=== PATIENT | female | born 1960 | race Caucasian/White ===

== ENCOUNTER 2021-08-26 11:02 | Inpatient (IN) | payer BC ==
[~2021-08-26] VITALS: Ht 165.1 cm; Wt 127.3 kg
[2021-08-26] MEDS ORDERED: CELEBREX 200MG200 MG (14:58)
[2021-08-26] MEDS ORDERED: LASIX 40MG TABL40 MG PO (15:00)
[2021-08-26] MEDS ORDERED: K-DUR 10 MEQ T10 MEQ PO (15:00)
[2021-08-26] MEDS ORDERED: WELLBUTRIN XL150 MG PO (15:01)
[2021-08-26] MEDS ORDERED: BUSPAR DIVIDOSE15 MG PO (15:02)
[2021-08-26] MEDS ORDERED: PERCOCET 325 MG1 TA3 PO (15:03)
[2021-08-26] MEDS ORDERED: GLUCOPHAGE500 MG/TAB PO (15:03)
[2021-08-26] MEDS ORDERED: ASPIRIN 32325 MG/TAB PO (15:03)
[2021-08-26] MEDS ORDERED: DITROPAN XL15 MG PO (15:04)
[2021-08-26] MEDS ORDERED: REMERON 15M15 MG/TA1 PO (15:04)
[2021-08-26] MEDS ORDERED: ZOCOR 20MG20 MG PO (15:04)
[2021-08-26] MEDS ORDERED: ZYRTEC10MGSGL PO (15:05)
[2021-08-26] MEDS ORDERED: PROZAC40 MG PO (15:05)
[2021-08-26] MEDS ORDERED: ZESTORETIC 25 M1 TAB PO (15:06)
[2021-08-26] MEDS ORDERED: EUTHYROX75 MCG PO (15:06)
[2021-08-26] MEDS ORDERED: PROAIR HFA0.09 MG/AC IH (15:07)
[2021-08-26] MEDS ORDERED: ADVIL200 MG PO (15:07)
[2021-08-26] MEDS ORDERED: MELATONIN ER10 MG PO (15:07)
[2021-08-26 17:45] VITALS: BP 149/70; PULSE 87; TEMP 98.9
--- NOTE | 2021-08-26 17:45 | NUR ---
PATIENT ADMITED INTO ROOM 347 POST OP. ORIENTED BUT DROWSY. VSS ON TELE. NO C/O PAIN OR NAUSEA. FLUIDS AT BEDSIDE. IV FLUIDS INFUSING VIA PUMP INTO RIGHT AC. LEFT FORARM IV TO INT. SHARPE TO DD WITH SMALL AMOUNTS OF YELLOW URINE NOTED. RLE DRESSING IS CD&I WITH AQUACEL AND ICE PACK INPLACE. SCD'S TO BLE. HEAD TO TOE ASSESSMENT COMPLETE. AT BEDSIDE. ORIENTED TO ROOM. CALL LIGHT IN REACH.
[2021-08-26 18:00] VITALS: BP 146/54; PULSE 88
[2021-08-26 18:15] VITALS: BP 149/86; PULSE 89
[2021-08-26 18:34] LABS: BASO % 0.3 % (0.0-2.0); EOS # 0.1 K/mm3 (0.0-0.7); EOS % 0.6 % (0.0-4.0); GRAN # 11.3 K/mm3 (1.4-6.5); GRAN % 84.1 % (42.2-75.2); HEMOGLOBIN 11.4 g/dl (12.5-16.0); LYMPH # 1.1 K/mm3 (1.2-3.4); LYMPH % 7.8 % (20.0-51.0); MEAN CELL VOLUME 89 fl (80.0-100.0); MEAN CORPUSCULAR HEMOGLOBIN 28 pg (27-31); MEAN CORPUSCULAR HGB CONC 31 g/dl (33.0-37.0); MEAN PLATELET VOLUME 9.9 fl (7.4-10.4); MONO # 0.9 K/mm3 (0.1-0.6); MONO % 6.7 % (1.7-9.3); PLATELET COUNT 271 K/mm3 (130-400); RED BLOOD COUNT 4.11 M/mm3 (4.10-5.30)
[2021-08-26 18:37] LABS: HEMATOCRIT 36.5 % (37.0-47.0)
[2021-08-26 18:43] LABS: CALCIUM 8.8 mg/dL (8.4-10.2); CREATININE, serum 0.75 mg/dL (0.57-1.11); POTASSIUM 4.6 mmol/L (3.5-4.5)
[2021-08-26 19:00] VITALS: BP 149/86; PULSE 89; TEMP 98.7
[2021-08-26 20:30] VITALS: BP 160/52; PULSE 92; TEMP 98.7
--- NOTE | 2021-08-26 21:30 | NUR ---
Pt. sitting up in bed. Pt. is A&OX3, assessment complete. INT to lt. ac patent. Pt. reports pain to rt. hip at a 6 on pain scale, gave pain meds. Pt. denies further needs, call light within reach.
[2021-08-26 23:33] VITALS: BP 134/44; PULSE 96; TEMP 98.7
[2021-08-27 04:22] VITALS: BP 119/56; PULSE 97; TEMP 98.9
[2021-08-27 06:19] LABS: HEMOGLOBIN 10.1 g/dl (12.5-16.0)
[2021-08-27 06:22] LABS: HEMATOCRIT 32.4 % (37.0-47.0)
[2021-08-27 07:36] VITALS: BP 136/56; PULSE 96; TEMP 98.4
[2021-08-27 12:21] VITALS: BP 116/50; PULSE 85; TEMP 98.4
--- NOTE | 2021-08-27 14:22 | NUR ---
PT HAS BEEN ASSISTED ONTO BEDSIDE COMMODE ET BACK INTO BED. PT HAS SEVERE PAIN IN RIGHT HIP WITH MOVEMENT THAT IMPROVES WHEN SHE BECOMES STILL. GAITBELT ET WALKER USED. PT DEMONSTRATES UNDERSTANDING OF TTWB FOR RIGHT LEG. AQUACELL DRESSING REMAINS IN PLACE. PT HAS URINATED X1 SINCE SHARPE CATHETER WAS REMOVED, 50 ML DARK JANAY ODOROUS URINE. PT ENCOURAGED TO DRINK MORE WATER, VERBALIZES UNDERSTANDING BUT STATES THAT SHE IS NOT A BIG WATER DRINKER, REFUSES OTHER DRINKS.
--- NOTE | 2021-08-27 14:23 | NUR ---
SW met with the pt to complete intake. Pt lives at home with her , Nilesh [phone]. Pt is independent on all ADLs but does use walker,cane and glucometer. Pt reports her PCP dr. Tere oreilly. Pt reports not interested in [facility] at this time. PT recommends [facility], and pt wants to go to [facility] and no nursing homes at all. DC: pending referral to SWB Referral faxed to [place] 08/27
[2021-08-27 16:14] VITALS: BP 137/74; PULSE 65; TEMP 97.6
--- NOTE | 2021-08-27 18:31 | NUR ---
PT HAS NOT URINATED BUT A VERY SMALL DARK ET CONCENTRATED AMOUNT OF URINE SINCE SHARPE CATHETER WAS REMOVED THIS AM. PT HAS BEEN ENCOURAGED TO DRINK FLUIDS BUT HAS NOT DONE SO, STATES THAT SHE DOES NOT WANT TO HAVE TO GET UP TO THE BEDSIDE COMMODE FREQUENTLY. PT STATES THAT SHE THINKS SHE IS FREQUENTLY DEHYDRATED. PT HAS BEEN BLADDER SCANNED, LARGEST AMOUNT OF URINE SCANNED WAS 98 ML. ATTEMPT MADE TO CONTACT ET CALL Daylin ADAM APRN X1, WILL ATTEMPT AGAIN SHORTLY.
[2021-08-27 19:39] VITALS: BP 125/49; PULSE 101; TEMP 99.6
[2021-08-28] VITALS (7 sets, daily range): BP systolic 104–141; BP diastolic 43–69; PULSE 82–97; TEMP 98–98.9
[2021-08-28 07:06] LABS: CALCIUM 8.7 mg/dL (8.4-10.2); CREATININE, serum 0.79 mg/dL (0.57-1.11); POTASSIUM 4.1 mmol/L (3.5-4.5)
[2021-08-28 07:40] LABS: BASO # 0.1 K/mm3 (0.0-0.2); BASO % 0.4 % (0.0-2.0); EOS # 0.4 K/mm3 (0.0-0.7); EOS % 3.1 % (0.0-4.0); GRAN # 8.2 K/mm3 (1.4-6.5); GRAN % 69.9 % (42.2-75.2); HEMOGLOBIN 10.4 g/dl (12.5-16.0); LYMPH % 16.8 % (20.0-51.0); MEAN CELL VOLUME 89 fl (80.0-100.0); MEAN CORPUSCULAR HEMOGLOBIN 28 pg (27-31); MEAN CORPUSCULAR HGB CONC 31 g/dl (33.0-37.0); MEAN PLATELET VOLUME 10.4 fl (7.4-10.4); MONO # 1.1 K/mm3 (0.1-0.6); MONO % 9.3 % (1.7-9.3); PLATELET COUNT 290 K/mm3 (130-400); RED BLOOD COUNT 3.77 M/mm3 (4.10-5.30); REDCELL DISTRIBUTION WIDTH-CV 14.2 % (11.5-14.5)
[2021-08-28 07:47] LABS: HEMATOCRIT 33.7 % (37.0-47.0)
--- NOTE | 2021-08-28 21:24 | NUR ---
Pt. laying in bed. Pt. is A&OX3, assessment complete. INT to rt. ac patent. Pt. reports pain to rt. hip at a 5 on pain scale, gave pain meds per orders. Pt. denies further needs, call light within reach.
[2021-08-29 04:06] VITALS: BP 129/56; PULSE 91; TEMP 98.5
[2021-08-29 06:30] LABS: BASO % 0.3 % (0.0-2.0); EOS # 0.4 K/mm3 (0.0-0.7); GRAN # 7.1 K/mm3 (1.4-6.5); GRAN % 71.3 % (42.2-75.2); LYMPH # 1.7 K/mm3 (1.2-3.4); LYMPH % 16.6 % (20.0-51.0); MEAN CELL VOLUME 92 fl (80.0-100.0); MEAN CORPUSCULAR HEMOGLOBIN 28 pg (27-31); MEAN CORPUSCULAR HGB CONC 30 g/dl (33.0-37.0); MEAN PLATELET VOLUME 9.9 fl (7.4-10.4); MONO # 0.7 K/mm3 (0.1-0.6); MONO % 7.3 % (1.7-9.3); PLATELET COUNT 284 K/mm3 (130-400); RED BLOOD COUNT 3.58 M/mm3 (4.10-5.30); REDCELL DISTRIBUTION WIDTH-CV 14.1 % (11.5-14.5)
[2021-08-29 06:33] LABS: HEMATOCRIT 32.9 % (37.0-47.0)
[2021-08-29 06:48] LABS: CALCIUM 8.7 mg/dL (8.4-10.2); CREATININE, serum 0.76 mg/dL (0.57-1.11); POTASSIUM 4.4 mmol/L (3.5-4.5)
[2021-08-29 07:39] VITALS: BP 144/45; PULSE 90; TEMP 98.9
--- NOTE | 2021-08-29 09:34 | NUR ---
JON called and spoke with SWBD coordinator Essie about this patient's referral. Essie states that she has not reviewed the referral yet but will call me after she does. Clinical updates faxed to [phone].
--- NOTE | 2021-08-29 10:05 | NUR ---
packing floor worker received a phone call back from Essie. She reports that they need to run the patient's insurance to see if she is needing a pre-authorization or not. Essie states that as long as the patient's insurance does not need a prior auth, they would like to accept this patient.
--- NOTE | 2021-08-29 11:32 | NUR ---
SW met with patient to discuss discharge plan. Patient calls her who is agreeable to transporting the patient if [facility] is able to accept. Informed the patient that at this time i have not gotten the formal acceptace from the facility yet. Patient states that she is going to need a walker going home. She would like for the order to go to [facility] [place]. Will work on getting the patient her walker order.
[2021-08-29 12:00] VITALS: BP 120/40; PULSE 83; TEMP 98.6
--- NOTE | 2021-08-29 12:57 | NUR ---
Essie with [facility] states the the patient's BCBS plan does not have any skilled benefits and that they cannot accept the patient with the risk of [facility] not paying. Patient will have to return home with services.
--- NOTE | 2021-08-29 13:54 | NUR ---
JON collaborated with Yimi in PT who states that the patient is to be non weight bearing for 6 weeks. Yimi does not feel as if the patient going home with HH is a safe option for her at this point. JON met with patient and notified that [facility] is not able to accept this patient. Patient asks that i reach out to Essie to see if she would be able to confirm with [facility] that they for sure will not cover the cost. Patient is blunt about not going to a fci. Informed patient that i can place a referral for our IPR unit. Patient is not happy with this option as she is wanting to be closer to home but is agreeable to this plan. She states she is going to plan on calling her insurance company herself to verify that she does not have skilled benefits.
--- NOTE | 2021-08-29 15:30 | NUR ---
JON assisted with contacting the patient's insurance with the patient. Per Crys at [facility], the patient does have SNF/SWBD benefits [facility]. Phone call made to Regina at [facility] who Essie has been working with. Regina states that they have not had a [facility] plan reimburse them for SWBD in the past and cannot accept this patient per their LIBRARIAN HELPER. Rosa Maria states that there INSULATION BLANKET MAKER is the only person that can override this and will not be back in until this Sunday. Again, asked patient if [facility] would be an option which is a "no". Asked if the patient would be willing to try [facility] which she states no and will most likely be the same.
[2021-08-29 16:14] VITALS: BP 125/41; PULSE 79; TEMP 98.4
[2021-08-29 19:12] VITALS: BP 120/45; PULSE 84; TEMP 99.3
--- NOTE | 2021-08-29 21:04 | NUR ---
PT IN BED. IS ALERT AND ORIENTED X4. HAS AQUACEL TO RT HIP D/I. HAS SIGNIFICANT BRUISING TO RT THIGH. LEFT KNEE BRUISE. PT REPORTS HAVING COPD, NPC NOTED. PTS NICOTENE PATCH TO LEFT ARM IS OFF. TAKES HS MEDS INCLUDING ROBAXIN 1000MG PO FOR RT LEG SPASMS. PT IS TTWB TO RT LEG.
[2021-08-29 23:24] VITALS: BP 145/44; PULSE 84; TEMP 99
[2021-08-30 03:27] VITALS: BP 157/62; PULSE 90; TEMP 97.8
--- NOTE | 2021-08-30 05:32 | NUR ---
ASSISTED TO BSC WITH ONE ASSIST/GAIT BELT/WALKER. DOES WELL WITH TTWB ON RIGHT. BACK TO BED AFTER VOIDING.
--- NOTE | 2021-08-30 05:41 | NUR ---
MEDICATED WITH PERCOCET AND ROBAXIN THIS AM WITH SCHEDULED AM MED.
[2021-08-30 07:32] VITALS: BP 121/58; PULSE 74; TEMP 98.1
--- NOTE | 2021-08-30 11:24 | NUR ---
table worker packager notified by IPR director that they accept this patient. SW met with patient to notify her. Patient verbalized that she is happy that we are accepting her and that she feels better now that there is a plan. Patient verbalized that she does not want me to contact her and that she will call him as he was already planning on making the trip down to visit her. Clinical team updated.
[2021-08-30] MEDS ORDERED: ASPI325T6 PO (11:44)
[2021-08-30] MEDS ORDERED: ROBAXIN 50500 MG/TAB PO (11:44)
[2021-08-30] MEDS ORDERED: NICODERM C14 MG/PATC TD (11:44)
[2021-08-30] MEDS ORDERED: PROZAC40 MG PO (11:45)
[2021-08-30] MEDS ORDERED: CELEBREX 200MG200 MG PO (11:45)
[2021-08-30] MEDS ORDERED: COLACE 100100 MG/CAP PO (11:46)
[2021-08-30] MEDS ORDERED: MIRALAX PA17 GM/Dose PO (11:46)
[2021-08-30 11:51] VITALS: BP 124/53; PULSE 72; TEMP 97.8
--- NOTE | 2021-08-30 14:19 | NUR ---
PATIENT ALERT AND ORIENTED. VSS. ASSESSMENT PERFORMED. AM MEDS ADMINISTERED. PATIENT REPORTS PAIN 4/10. AQUACELL TO RIGHT HIP SURGICAL SITE WITH QUARTER SIZED DRAINAGE. BRUISING TO RIGHT THIGH. RIGHT AC INT, FLUSHES WELL. CALL LIGHT WITHIN REACH. BED ALARM ON.
--- NOTE | 2021-08-30 14:21 | NUR ---
PATIENT DISCHARGED. TRANSFERRED TO [facility].
== END 2021-08-30 14:21 | DRG 466 ==
LOC: COL.ER 11:02 → SURG 13:00
PROVIDERS: Family Medicine; Orthopaedic Surgery; ADMIT Student in an Organized Health Care Education/Training Program
PROC: 0SPR0JZ Removal of Synthetic Substitute from Right Hip Joint, Femoral Surface, Open Approach (ICD-10-PCS; 2021-08-26)
PROC: 0SP909Z Removal of Liner from Right Hip Joint, Open Approach (ICD-10-PCS; 2021-08-26)
PROC: 0SUA09Z Supplement Right Hip Joint, Acetabular Surface with Liner, Open Approach (ICD-10-PCS; 2021-08-26)
PROC: 0SRR03Z Replacement of Right Hip Joint, Femoral Surface with Ceramic Synthetic Substitute, Open Approach (ICD-10-PCS; principal; 2021-08-26 15:00)
DX: T84.020A Dislocation of internal right hip prosthesis, initial encounter (principal); S72.91XA Unspecified fracture of right femur, initial encounter for closed fracture; Z68.42 Body mass index [BMI] 45.0-49.9, adult; W01.0XXA Fall on same level from slipping, tripping and stumbling without subsequent striking against object, initial encounter; F17.210 Nicotine dependence, cigarettes, uncomplicated; E66.9 Obesity, unspecified; J44.9 Chronic obstructive pulmonary disease, unspecified; F32.A Depression, unspecified; I10 Essential (primary) hypertension; M54.9 Dorsalgia, unspecified; M97.01XA Periprosthetic fracture around internal prosthetic right hip joint, initial encounter; G89.29 Other chronic pain; G47.33 Obstructive sleep apnea (adult) (pediatric); E78.5 Hyperlipidemia, unspecified; D72.829 Elevated white blood cell count, unspecified; E11.9 Type 2 diabetes mellitus without complications; K59.00 Constipation, unspecified; M62.838 Other muscle spasm; F41.9 Anxiety disorder, unspecified; E03.9 Hypothyroidism, unspecified; Z79.84 Long term (current) use of oral hypoglycemic drugs; Z79.890 Hormone replacement therapy; Y92.89 Other specified places as the place of occurrence of the external cause; Y93.89 Activity, other specified; Z88.8 Allergy status to other drugs, medicaments and biological substances; Z91.018 Allergy to other foods; Z23 Encounter for immunization
CPT/HCPCS: 99232-AI; 99233-AI; 99239; A9284; C1776; J0330; J0690; J1885; J2250; J2270; J2370; J2704; J3010; J7030; J7050

== ENCOUNTER 2021-08-30 13:59 | Inpatient (IN) | payer BC ==
[~2021-08-30] VITALS: Ht 165.1 cm; Wt 129.5 kg
[~2021-08-30 13:59] MED LIST: ADVIL200 MG PO; ASPI325T6 PO; ASPIRIN 32325 MG/TAB PO; BUSPAR DIVIDOSE15 MG PO; CELEBREX 200MG200 MG; CELEBREX 200MG200 MG PO; COLACE 100100 MG/CAP PO; DITROPAN XL15 MG PO; EUTHYROX75 MCG PO; GLUCOPHAGE500 MG/TAB PO; K-DUR 10 MEQ T10 MEQ PO; LASIX 40MG TABL40 MG PO; MELATONIN ER10 MG PO; MIRALAX PA17 GM/Dose PO; NICODERM C14 MG/PATC TD; PERCOCET 325 MG1 TA3 PO; PROAIR HFA0.09 MG/AC IH; PROZAC40 MG PO; REMERON 15M15 MG/TA1 PO; ROBAXIN 50500 MG/TAB PO; WELLBUTRIN XL150 MG PO; ZESTORETIC 25 M1 TAB PO; ZOCOR 20MG20 MG PO; ZYRTEC10MGSGL PO
[2021-08-30 17:32] VITALS: BP 131/66; PULSE 78; TEMP 98.6
--- NOTE | 2021-08-30 23:08 | NUR ---
PATIENT ALERT AND ORIENTED. HS MEDS PER [facility]. C/O MODERATE R HIP PAIN, PRN ROBAXIN AND PERCOCET GIVEN. R HIP AQACELL HAS SMALL AMOUNT OF DRAINAGE NOTED. L UPPER ARM DOES HAVE A HEALING SCAB WHERE PATIENT SAYS SHE SLICED HER ARM WHEN FALLING. DENIES ADDITIONAL NEEDS.
[2021-08-31 05:52] VITALS: BP 142/75; PULSE 82; TEMP 98.2
--- NOTE | 2021-08-31 07:00 | NUR ---
Shift report received from catcher plug RN. Pt. awake and sitting in recliner. TLSO brace is on. Call light is within his reach. He denies any needs at this time
--- NOTE | 2021-08-31 07:03 | NUR ---
Shift report received from date night caregiver RN. Pt. resting supine in bed. Call light is within her reach
--- NOTE | 2021-08-31 09:33 | NUR ---
Pt reporting right hip pain at 2-05/19. Note in [facility] stating that pt. develops hives w/ acetaminophen. Pt. reports that she does not have a reaction to acetaminophen, but to Lortab. PRN Tylenol given at her request. Will monitor for hives
--- NOTE | 2021-08-31 11:01 | NUR ---
Pt assisted back to bed after toileting using fww, gaitbelt, SBA. Pt. was able to get in bed on her own using adaptive equipment. She denies pain or discomfort at this time. Call light is within her reach
--- NOTE | 2021-08-31 16:01 | NUR ---
Sports Equipment Racker met with patient to complete intake as well as provide copy of team conference notes. Patient lives in [facility] with her , Nilesh (pH#[phone]) who is a fuel truck driver and she sees Dr. Avina for primary care. Patient obtains medications from [facility] in [place] with no difficulties. Patient has a cane but needs a walker and wheelchair ordered. Patient would like to order these items through [facility] and advised if insurance only covers one item, she wants to use her insurance for the wheelchair. JON discussed recommendation for Home Health and provided Medicare.gov list of HH agencies to choose from. JON also reviewed discharge date of 09/07/21 and scheduled family meeting for Sunday at 0930. Patient stated she will notify Nilesh.
--- NOTE | 2021-08-31 16:33 | NUR ---
Pt. assisted to bathroom using fww, gait belt. She remains as TTWB RLE. Pt. assisted back to bed after toileting. RLE elevated on pillow. Pt. denies pain/discomfort at this time. Denies additional needs. Call light is within her reach
[2021-08-31 17:38] VITALS: BP 116/56; PULSE 75; TEMP 99
--- NOTE | 2021-08-31 19:00 | NUR ---
RECEIVED CHANGE OF SHIFT REPORT FROM DAY SHIFT RN. EXIT ALARM ON WHEN IN BED, CALL LIGHT WITHIN REACH. PATIENT DENIES ANY NEEDS AT TIME OF REPORT.
--- NOTE | 2021-08-31 20:00 | NUR ---
PATIENT VERBALIZES UNDERSTANDING OF TTWB TO RLE WITH OUT OF BED ACTIVITIES WITH NO REPORTED PROBLEMS, REPORTS "I HOPE I'M KEEPING THE WT OFF THAT LEG".
[2021-09-01 05:42] VITALS: BP 149/51; PULSE 85; TEMP 98.8
--- NOTE | 2021-09-01 06:55 | NUR ---
CHANGE OF SHIFT REPORT GIVEN TO DAY SHIFT JOHN LAINEZ.
[2021-09-01 17:15] VITALS: BP 127/89; PULSE 84; TEMP 984
--- NOTE | 2021-09-01 20:30 | NUR ---
PT ASSISTED TO BSC. VOIDED LARGE AMT CLEAR YELLOW URINE. PT DENIES PAIN. BACK TO BED. NO NEEDS AT THIS TIME.
[2021-09-02 05:53] VITALS: BP 157/61; PULSE 92; TEMP 97.9
--- NOTE | 2021-09-02 10:01 | NUR ---
Patient/Family meeting conducted w/ pt, , daughter, & grandson. Also present was the PT, OT, & content director. The team talked about how pt has been doing, which pt agreed w/ & stated she feels she is more comfortable now than she had. Informed them of d/c for 09/06/21, w/ recommendation for home health PT/OT. The family asked questions & very appreciative of her care & progress.
--- NOTE | 2021-09-02 13:12 | NUR ---
Admission QIM scores were reviewed by the team. Code of 3 chosen for toilet hygiene was determined by team discussion to be the most usual performance for this patient during the assessment period. Code of 3 chosen for lower body dressing was determined by team discussion to be the most usual performance for this patient during the assessment period. Code of 3 chosen for sit to lying was determined by team discussion to be the most usual performance before interventions for this patient during the assessment period. Code of 3 chosen for lying to sitting on side of bed was determined by team discussion to be the most usual performance for this patient during the assessment period.--Jessica Mejia,
--- NOTE | 2021-09-02 14:06 | NUR ---
Patient's walker order faxed to [facility]. Asked Lan if he would be able to deliver the walker to which he said yets. Patient's w/c chair order faxed ([phone]) to [facility]. Informed them that the patient's will be picking her wc up.
[2021-09-02 17:30] VITALS: BP 142/61; PULSE 89; TEMP 98
--- NOTE | 2021-09-02 18:10 | NUR ---
PATIENT ALERT AND ORIENTED X3. VSS. PATIENT HERE FOR RIGHT TOTAL HIP REVISION. PATIENT DENIES PAIN AT THIS TIME. ASSESSMENT PERFORMED. AM MEDS ADMINISTERED. CALL LIGHT WITHIN REACH.
--- NOTE | 2021-09-02 20:00 | NUR ---
PT RESTING IN BED. MIN 1 ASSIST TO BSC TO VOID WITH WaLKER. PT RELATED DOESNT LIKE THE MUSCLE RELAXER. CALL LIGHT IN REACH. BED ALARM SET.
[2021-09-03 05:55] VITALS: BP 116/67; PULSE 68; TEMP 98.1
--- NOTE | 2021-09-03 06:47 | NUR ---
Shift report received from night custodian RN. Pt. resting in right side lying position in bed. Call light is within her reach
--- NOTE | 2021-09-03 17:46 | NUR ---
Pt sitting up in recliner with BLE elevated on footrest. She denies pain or discomfort. Aquacell to right hip is CDI. She denies additional needs. Call light is within her reach
[2021-09-03 18:00] VITALS: BP 115/52; PULSE 80; TEMP 98.4
--- NOTE | 2021-09-03 20:00 | NUR ---
ASSISTED TO BR. VOIDED W/O DIFFICULTY. PAIN CONTROLLED. NO NEEDS AT THIS TIME.
[2021-09-04 05:44] VITALS: BP 148/60; PULSE 91; TEMP 98.3
--- NOTE | 2021-09-04 09:00 | NUR ---
PT LAYING SUPINE IN BED ON ROOM AIR. PT STATES THAT SHE IS DONE WITH BREAKFAST AND WOULD LIKE TO GET UP TO THE RESTROOM. PT WAS ASSISTED VIA WALKER TO BATHROOM. PT ABLE TO VOID AND HAVE A BM AND THEN ASSISTED TO SIT UP IN THE BEDSIDE CHAIR. PT STATES NO PAIN AT THIS TIME. PT WOULD LIKE TO HAVE A CUP OFF COFFEE. COFFEE WAS GIVEN TO PT. NO OTHER NEEDS/CONCERNS VOICED AT THIS TIME. CALL LIGHT IS WITHIN REACH.
[2021-09-04 17:31] VITALS: BP 126/47; PULSE 69; TEMP 98.1
--- NOTE | 2021-09-04 18:38 | NUR ---
PT SITTING UP IN BEDSIDE CHAIR FINISHING DINNER. PT STATES THAT SHE IS DONE WITH HER TRAY. TRAY WAS REMOVED. PT STATES "I AM GOING TO SIT UP IN THIS CHAIR A FEW MORE HOURS AND THEN I WANT TO GO TO BED." PT STATES NO PAIN OR NEEDS AT THIS TIME. CALL LIGHT IS WITHIN REACH.
--- NOTE | 2021-09-04 19:42 | NUR ---
ASSISTED TO BR WITH WALKER. NO COMPLAINTS. HAD BM EARLIER TODAY. VOIDING W/O DIFFICULTY. RT HIP PAIN UNDER CONTROL.
[2021-09-05 05:22] VITALS: BP 148/54; PULSE 88; TEMP 97.9
--- NOTE | 2021-09-05 06:18 | NUR ---
PT HAS SLEPT WELL THROUGH THE NIGHT. NO PAIN MEDS NEEDED.
--- NOTE | 2021-09-05 07:58 | NUR ---
Shift report received from [facility] shift lead RN. Pt. assisted to toilet using fww, gait belt. Pt assisted to recliner for breakfast. She denies pain/discomfort at this time. Call light is within her reach
--- NOTE | 2021-09-05 11:19 | NUR ---
Pt. resting supine in bed. Assisted with repositioning to left side. Aquacell to right hip incision was replaced this morning after she showered with OT. Ice pack place on right hip at her request. She denies pain or discomfort. Denies additional needs. Call light is within her reach
--- NOTE | 2021-09-05 13:49 | NUR ---
Patients certificate of medical necessity for her WC provided to the physician. Signed copy faxed to [facility].
--- NOTE | 2021-09-05 14:08 | NUR ---
Pt. resting in bed. She is now Mod I in her room. Encouraged pt to continue to ask for help if she needs it. Pt. reports pain level /10. She denies additional needs. Call light is within her reach
--- NOTE | 2021-09-05 15:57 | NUR ---
Trisha with [facility] states that they did not get the patient's walker order. Order re-faxed to Laura and confirmed that she got it. Again, told her that the patient is scheduled for discharge tomorrow and will need to have it delivered. Confirmed with the patient and her that he was able to get the patient's wheelchair from [facility].
[2021-09-05 16:52] VITALS: BP 146/51; PULSE 80; TEMP 98.9
--- NOTE | 2021-09-05 17:46 | NUR ---
Pt sitting up in recliner with BLE elevated on foot rest. and grandson were here to visit. Pt. is looking forward to discharging home tomorrow. She denies pain or discomfort. Rt. hip Aquacell is CDI. Pt. denies further needs. Call light is within her reach
--- NOTE | 2021-09-05 19:32 | NUR ---
RECEIVED CHANGE OF SHIFT REPORT FROM DAY SHIFT RN.
[2021-09-06 06:08] VITALS: BP 135/49; PULSE 95; TEMP 98
--- NOTE | 2021-09-06 07:03 | NUR ---
CHANGE OF SHIFT REPORT GIVEN TO DAY SHIFT RNSAMMY.
[2021-09-06] MEDS ORDERED: ASPI325T6 PO (08:41)
[2021-09-06] MEDS ORDERED: CELEBREX 200MG200 MG PO (08:42)
[2021-09-06] MEDS ORDERED: PROZAC40 MG PO (08:43)
[2021-09-06] MEDS ORDERED: DITROPAN XL15 MG PO (08:44)
[2021-09-06] MEDS ORDERED: COLACE 100100 MG/CAP PO (08:45)
[2021-09-06] MEDS ORDERED: WELLBUTRIN XL150 MG PO (08:46)
[2021-09-06] MEDS ORDERED: BUSPIRONE HCL7.5 MG PO (08:47)
--- NOTE | 2021-09-06 09:24 | NUR ---
PATIENT ALERT AND ORIENTED X3. VSS. PATIENT HERE FOR RIGHT TOTAL HIP REVISION. PATIENT DENIES PAIN. ASSESSMENT PERFORMED. AM MEDS ADMINISTERED. PATIENT IN BED WITH CALL LIGHT NEAR.
--- NOTE | 2021-09-06 09:28 | NUR ---
Phone call made to [facility] to nitify them that the patient will be discharging this morning and requested that her walker be delivered by 1000 am. Phone call made to [facility] in [place] and message left. Patient's discharge orders faxed. Patient's present at bedside. Both the patient and her updated.
--- NOTE | 2021-09-06 10:15 | NUR ---
DISCHARGE INSTRUCTIONS PROVIDED. FOLLOW UP APPOINTMENTS DISCUSSED. PATIENT DENIES ANY QUESTIONS OR CONCERNS. PATIENT ESCORTED OUT VIA WHEELCHAIR.
== END 2021-09-06 10:02 | disposition home health service (06) | DRG 950 ==
PROVIDERS: ADMIT Physical Medicine & Rehabilitation Sports Medicine
DX: T84.020D Dislocation of internal right hip prosthesis, subsequent encounter (principal); Z96.641 Presence of right artificial hip joint; D72.828 Other elevated white blood cell count; K59.00 Constipation, unspecified; I10 Essential (primary) hypertension; J44.9 Chronic obstructive pulmonary disease, unspecified; E11.9 Type 2 diabetes mellitus without complications; E03.9 Hypothyroidism, unspecified; K21.9 Gastro-esophageal reflux disease without esophagitis; F32.A Depression, unspecified; F41.9 Anxiety disorder, unspecified; N32.89 Other specified disorders of bladder; R35.0 Frequency of micturition; E78.5 Hyperlipidemia, unspecified; Z73.6 Limitation of activities due to disability; R26.89 Other abnormalities of gait and mobility; Z91.018 Allergy to other foods; Z88.5 Allergy status to narcotic agent; Z79.891 Long term (current) use of opiate analgesic; Z79.899 Other long term (current) drug therapy; Z79.84 Long term (current) use of oral hypoglycemic drugs; Z79.82 Long term (current) use of aspirin; W01.0XXD Fall on same level from slipping, tripping and stumbling without subsequent striking against object, subsequent encounter; Y92.009 Unspecified place in unspecified non-institutional (private) residence as the place of occurrence of the external cause; Z72.0 Tobacco use
CPT/HCPCS: 99222; 99232-AI